=== PATIENT | female | born 1965 | race Caucasian/White ===

== ENCOUNTER 2016-08-19 08:36 | Emergency (ER) | payer BC ==
--- NOTE | 2016-08-19 09:45 | RAD ---
INDICATION: RIGHT wrist pain post fall. COMPARISON: February 19, 2016 DEXA scan documenting osteoporosis. TECHNIQUE: AP, lateral, and oblique views RIGHT wrist. REPORT: Bone density about the carpus appears decreased. Normal articular alignment. No cortical disruption or suspicious trabecular irregularity to suggest fracture. Unremarkable soft tissue contours. IMPRESSION: No traumatic injury evident.
--- NOTE | 2016-08-19 09:48 | RAD ---
INDICATION: Bilateral elbow pain post fall. COMPARISON: None. TECHNIQUE: AP, lateral, and oblique views bilateral elbows. REPORT: RIGHT elbow: Minimal dorsal soft tissue swelling. Negative for fat pad displacement to indicate effusion. Negative for fracture or malalignment. LEFT elbow: Significant dorsal soft tissue swelling. Small bone spur at the olecranon insertion of the triceps tendon. No fracture evident. Negative for fat pad displacement to indicate effusion. Normal articular alignment. IMPRESSION: LEFT significantly greater than RIGHT elbow dorsal soft tissue swelling. Negative for fracture.
--- NOTE | 2016-08-19 09:51 | RAD ---
Indication: Low back pain post fall onto back. Osteoporosis documented on prior DEXA scan. Comparison: April 02, 2010 radiographs. Technique: AP, lateral, and oblique views lumbar sacral spine. Report: Alignment is anatomic. No cortical disruption or trabecular impaction to indicate a vertebral body fracture. Oblique views without evidence for spondylolysis. Preserved disc spaces. Mild subchondral sclerosis at the L5-S1 facet joints consistent with mild osteoarthritis. Unremarkable soft tissue contours. IMPRESSION: No traumatic injury of the lumbar sacral spine evident.
--- NOTE | 2016-08-19 09:56 | ED ---
Adult Trauma - HPI Summary HPI Summary: 51 F presents with fall on ice. Admits to right wrist, elbow, left elbow, and back pain. Has hx osteoproesis. She denies any chest pain or SOB. She is right handed. Edema is noted to left elbow. Has not taken anything for pain. Did not hit head or LOC. She denies any loss of bowel or bladder or any saddle anaesthesia. She slipped backwards when feel. - History of Current Complaint Chief Complaint: EDExtremityUpper Stated Complaint: FALL / RT WRIST INJURY Time Seen by Provider: 08/19/16 08:46 Pain Intensity: 8 - Allergy/Home Medications Allergies/Adverse Reactions: Allergies Allergy/AdvReac Type Severity Reaction Status Date / Time Apple Allergy Severe Difficulty Verified 08/19/16 08:43 Breathing Banana Allergy Severe Difficulty Verified 08/19/16 08:43 Breathing Clarithromycin [From Biaxin] Allergy Intermediate Hives Verified 08/19/16 08:43 Erythromycin Allergy Intermediate Hives Verified 08/19/16 08:43 Indomethacin [From Indocin] Allergy Intermediate GI Upset Verified 08/19/16 08: 43 Iodine Allergy Intermediate Hives Verified 08/19/16 08:43 Sulfa Antibiotics Allergy Intermediate Hives Verified 08/19/16 08:43 Latex Allergy Mild Rash Verified 08/19/16 08:43 Penicillins AdvReac Intermediate Hives Verified 08/19/16 08:43 BEE STINGS Allergy Intermediate Swelling Uncoded 05/27/16 06:53 PMH/Surg Hx/FS Hx/Imm Hx Endocrine/Hematology History: Denies: Hx Diabetes Cardiovascular History: Reports: Other Cardiovascular Problems/Disorders - PERICARDITIS 1999 Denies: Hx Hypertension, Hx Pacemaker/ICD Respiratory History: Reports: Hx Asthma - INHALERS AND MEDICATION, Hx Pulmonary Embolism History: Denies: Hx Renal Disease Musculoskeletal History: Reports: Hx Osteoporosis, Other Musculoskeletal History - OSTEOPOROSIS Denies: Hx Rheumatoid Arthritis Sensory History: Denies: Hx Contacts or Glasses, Hx Hearing Aid Opthamlomology History: Denies: Hx Contacts or Glasses Neurological History: Reports: Other Neuro Impairments/Disorders - TIA 2014 Psychiatric History: Denies: Hx Panic Disorder - Cancer History Hx Chemotherapy: No Hx Radiation Therapy: No - Surgical History Surgery Procedure, Year, and Place: HYSTERECTOMY 1997. CHOLECYSTECTOMY -2012. TONSILECTOMY - 2000. MASTOIDECTOMY/REBUILT ( WITH PT'S OWN CARTILAGE) - AT 20MOS OLD & AT AGE 9 AND THEN CLEANED OUT MASTOID Hx Anesthesia Reactions: Yes - NAUSEA, VOMITING AND CHILLS AT TIME Infectious Disease History: No Infectious Disease History: Denies: Traveled Outside the [place] in Last 30 Days - Family History Known Family History: Negative: Cardiac Disease - Social History Alcohol Use: None Substance Use Type: Reports: None Smoking Status (MU): Never Smoked Tobacco Review of Systems Negative: Fever Negative: Chest Pain Negative: Shortness Of Breath Positive: Myalgia - bilateral elbow, back, right wrist All Other Systems Reviewed And Are Negative: Yes Physical Exam Triage Information Reviewed: Yes Vital Signs On Initial Exam: Initial Vitals Temp Pulse Resp BP Pulse Ox 98.4 F 108 19 155/78 100 08/19/16 08:38 08/19/16 08:38 08/19/16 08:38 08/19/16 08:38 08/19/16 08:38 Vital Signs Reviewed: Yes Appearance: Positive: Well-Appearing Skin: Positive: Warm, Dry Head/Face: Positive: Normal Head/Face Inspection Eyes: Positive: Normal, Conjunctiva Clear ENT: Positive: Normal ENT inspection, Pharynx normal, TMs normal Respiratory/Lung Sounds: Positive: Clear to Auscultation, Breath Sounds Present Cardiovascular: Positive: Normal, RRR Musculoskeletal: Positive: Strength/ROM Intact - of right and left elbow, Limited @ - right wrist due to pain, Edema Left - elbow, Other - neg SLR, no midline tenderness of back, tender to right side of back. tender to right wrist with no obvious deformity, good pulses, capillary refill<2 secs, sensation grossly intact Diagnostics - Vital Signs Vital Signs Temp Pulse Resp BP Pulse Ox 08/19/16 08:38 98.4 F 108 19 155/78 100 - Laboratory Lab Statement: Any lab studies that have been ordered have been reviewed, and results considered in the medical decision making process. - Radiology back Xray Interpretation: No Acute Changes - IMPRESSION: No traumatic injury of the lumbar sacral spine evident. Radiology Interpretation Completed By: Radiologist wrist Xray Interpretation: No Acute Changes Radiology Interpretation Completed By: Radiologist elbow Xray Interpretation: No Acute Changes Radiology Interpretation Completed By: Radiologist Adult Trauma Course/Dx - Course Course Of Treatment: 51 F presents with bilateral elbow pain, right wrist and back pain, no obvious deformity, back no midline tenderness, xray normal, will treat conservatively, patient agrees with plan - Diagnoses Differential Diagnosis/HQI/PQRI: Positive: Contusion(s), Fracture, Sprain, Strain Provider Diagnoses: Fall, Bilateral elbow joint pain, Right wrist pain, Lower back pain Discharge - Discharge Plan Condition: Good Disposition: HOME Patient Education Materials: Back Pain (ED) Referrals: Adrienne Callahan MD [Primary Care Provider] - Additional Instructions: Take Tylenol or ibuprofen every 6 hours as needed for pain Apply ice, rest, elevate Follow up with primary care physician within 5 days Return to ED if develop numbness, tingling, inability to move joint, or any new or worsening symptoms
[2016-08-19 10:19] VITALS: BP 122/74
== END 2016-08-19 10:17 | disposition home or self-care (01) ==
LOC: ED 08:36
DX: M25.522 Pain in left elbow (principal); M25.521 Pain in right elbow; M25.531 Pain in right wrist; W00.0XXA Fall on same level due to ice and snow, initial encounter; Y92.9 Unspecified place or not applicable; J45.909 Unspecified asthma, uncomplicated; Z88.0 Allergy status to penicillin; Z88.2 Allergy status to sulfonamides
CPT/HCPCS: 72110; 99282